=== PATIENT | male | born 1980 | race Two or more races ===

== ENCOUNTER → 2018-03-20 | Outpatient (CLI) | payer OTHER ==
[2018-03-21 02:39] LABS: Anion Gap 8.8 mmol/L (4.00-12.00); Calcium 9.5 mg/dL (8.7-10.3); Carbon Dioxide 27.2 mmol/L (21.6-31.8); Potassium 4.4 mmol/L (3.5-5.5)
[2018-03-21 04:11] LABS: Hemoglobin A1C 5.5 % (4.0-6.0)
== END | disposition home or self-care (01) ==
LOC: LABWHC1 14:56
PROVIDERS: ATTEND Nurse Practitioner Adult Health
DX: Z00.00 Encounter for general adult medical examination without abnormal findings (principal); E78.2 Mixed hyperlipidemia
CPT/HCPCS: 36415; 80048; 80061; 83036

== ENCOUNTER → 2018-04-01 | Outpatient (CLI) | payer OTHER ==
--- NOTE | 2018-04-02 08:42 | XR ---
Lumbosacral spine HISTORY: Low back pain radiating to right leg 5 views of the lumbosacral spine No comparisons Lumbar vertebral bodies show preserved height, alignment, and bone mineralization. No evident spondyl olysis. Suspect transitional vertebral body, sacralization of L5. Some loss of disc height present L4 -5. IMPRESSION: Possible underlying degenerative disc disease and additional findings above. Lumbar MRI m ay be of benefit.
== END ==
LOC: RADXRMAIN 17:58
PROVIDERS: ATTEND Nurse Practitioner Adult Health
DX: M54.41 Lumbago with sciatica, right side (principal)
CPT/HCPCS: 72110

== ENCOUNTER → 2018-04-02 | Outpatient (CLI) | payer OTHER ==
--- NOTE | 2018-04-02 21:49 | MR ---
EXAMINATION TYPE: MR lumbar spine wo con DATE OF EXAM: 04/02/2018 COMPARISON: Plain film 04/01/2018 HISTORY: LBP, radiates into rt buttock TECHNIQUE: Multiplanar, multisequence images of the lumbar spine were acquired. L1-L2: Normal disc appearance without desiccation. No herniation, protrusion or disc bulging. No ca nal stenosis is present. Foramina are patent bilaterally. L2-L3: Normal disc appearance without desiccation. No herniation, protrusion or disc bulging. No ca nal stenosis is present. Foramina are patent bilaterally. L3-L4: Normal disc appearance without desiccation. No herniation, protrusion or disc bulging. No ca nal stenosis is present. Foramina are patent bilaterally. L4-L5: There is a left lateral disc herniation with extension towards the neural foramen, there may b e mass effect on the proximal L5 nerve root, there is no significant central canal stenosis. Lateral extension of endplate disc complex also encroaches on the left neural foramen. L5-S1: Normal disc appearance without desiccation. No herniation, protrusion or disc bulging. No ca nal stenosis is present. Foramina are patent bilaterally. Lumbar segments are intact. No paraspinal masses are identified. Conus medullaris has a normal appe arance. Lumbar vertebral bodies show preserved height and alignment. There is loss of disc height and signal at L4-5, there is endplate discogenic marrow signal change present. IMPRESSION: Degenerative disc disease as described with lateral disc herniation L4-5, correlate for radiculopathy .
== END | disposition home or self-care (01) ==
LOC: RADMRIMAIN 16:39
PROVIDERS: ATTEND Internal Medicine
DX: M51.16 Intervertebral disc disorders with radiculopathy, lumbar region (principal); R93.7 Abnormal findings on diagnostic imaging of other parts of musculoskeletal system
CPT/HCPCS: 72148

== ENCOUNTER → 2020-07-27 | Outpatient (CLI) | payer OTHER ==
[2020-07-27 19:15] LABS: Hemoglobin A1C 9.4 % (4.0-6.0)
[2020-07-28 01:07] LABS: ALT 67 U/L (10-49); AST 76 U/L (14-35); African American GFR (CKD) 123.4 (60.0-200.0); Albumin/Globulin Ratio 2.32 (1.60-3.17); Alkaline Phosphatase 128 U/L (41-126); BUN/Creat Ratio 13.33 Ratio (12.00-20.00); Calcium 9.6 mg/dL (8.7-10.3); Carbon Dioxide 23.5 mmol/L (21.6-31.8); Chloride 97 mmol/L (96-109); Chol/HDL Ratio 26.76; Cholesterol 562 mg/dL (0-200); Globulin 1.9 g/dL (1.6-3.3); Glucose 287 mg/dL (70-110); Non-African American GFR(CKD) 106.5 (60.0-200.0); Potassium 4.8 mmol/L (3.5-5.5); Sodium 133 mmol/L (135-145); Total Bilirubin 0.8 mg/dL (0.2-1.2); Total Protein 6.3 g/dL (6.2-8.2); Triglycerides >1100.0 mg/dL (0.0-149.0)
[2020-07-28 05:08] LABS: Urine Creatinine 149.8 mg/dL
== END | disposition home or self-care (01) ==
LOC: LABWHC1 10:31
PROVIDERS: ATTEND Nurse Practitioner Adult Health
DX: Z00.00 Encounter for general adult medical examination without abnormal findings (principal); E11.65 Type 2 diabetes mellitus with hyperglycemia
CPT/HCPCS: 36415; 80053; 80061; 82043; 82570; 83036; 83721; 84443

== ENCOUNTER → 2020-09-28 | Outpatient (CLI) | payer OTHER ==
--- NOTE | 2020-09-28 18:48 | CT ---
EXAMINATION TYPE: CT abdomen pelvis wo con DATE OF EXAM: 09/28/2020 COMPARISON: None INDICATION: flank pain, hx of stones DLP: 1655.1 mGycm, Automated exposure control for dose reduction was used. CONTRAST: 0 mL of Isovue 300. Study performed without Oral Contrast TECHNIQUE: Axial images were obtained from above the diaphragm to the pubic rami in the axial plane a t 5 mm thick sections. Reconstructed images are reviewed on the computer in the coronal plane. FINDINGS: Limited CT sections are obtained the lung bases. The lung bases are clear. CT ABDOMEN: Liver: Normal Spleen: Normal Pancreas: Normal Adrenal glands: The adrenal glands are normal. Gallbladder: Surgically absent Kidneys: No masses are evident. No hydronephrosis is present. No cysts are present. There is a lar ge irregular nonobstructing renal stone in the superior pole right kidney measuring 1.9 cm. There is a nonobstructing mid to inferior pole left renal stone measuring 0.6 cm. There is an obstructing left ureteral pelvic stone measuring 1.5 cm. Some minimal inflammatory change is adjacent to the ureter. No hydroureter is evident distal to the calcification. Aorta: Vascular calcification is within the aorta. Inferior vena cava: Normal. CT PELVIS: Loops of bowel within the abdomen and pelvis are normal. The study is without oral contrast limit ing bowel evaluation. Appendix: Normal as visualized. Urinary bladder: Normal. No urinary bladder calcifications are evident Genitourinary structures: Prostate is slightly prominent. Osseous structures: No suspicious lytic or sclerotic lesions. IMPRESSIONS: 1. There is a partially obstructing 1.5 cm calcification at the left ureteropelvic junction. No sign ificant hydronephrosis is evident with mild left renal pelvis prominence. Some inflammatory change is adjacent at the level of the calcification. Free fluid is not identified. 2. Bilateral nonobstructing renal stones the larger is at superior pole right kidney.
== END | disposition home or self-care (01) ==
LOC: RADCTMAIN 17:21
PROVIDERS: ATTEND Urology
DX: N20.0 Calculus of kidney (principal); N20.1 Calculus of ureter; N13.5 Crossing vessel and stricture of ureter without hydronephrosis
CPT/HCPCS: 74176

== ENCOUNTER → 2020-10-18 | Outpatient (CLI) | payer OTHER ==
[2020-10-18 16:23] LABS: Basophils # (A) 0.1 k/uL (0-0.2); Basophils % (A) 1 %; Eosinophils # (A) 0.3 k/uL (0-0.7); Eosinophils % (A) 3 %; HCT 48.2 % (39.0-53.0); HGB 16.9 gm/dL (13.0-17.5); Lymphocytes # (A) 3.7 k/uL (1.0-4.8); Lymphocytes % (A) 37 %; MCH 28.3 pg (25.0-35.0); MCHC 35.1 g/dL (31.0-37.0); MCV 80.5 fL (80.0-100.0); Mean Platelet Volume 6.8; Monocytes # (A) 0.6 k/uL (0-1.0); Monocytes % (A) 6 %; Neutrophils # (A) 5.1 k/uL (1.3-7.7); Neutrophils % (A) 52 %; Platelet Count 261 k/uL (150-450); RBC 5.99 m/uL (4.30-5.90); RDW 13.3 % (11.5-15.5); WBC 9.9 k/uL (3.8-10.6)
[2020-10-18 16:37] LABS: Appearance,Urine Cloudy (Clear); Bilirubin,Urine Negative (Negative); Blood,Urine Large (Negative); Budding Yeast,Urine Moderate /hpf; Color,Urine Yellow; Glucose,Urine (UA) Trace (Negative); Ketones,Urine Trace (Negative); Leukocyte Esterase,Urine Moderate (Negative); Mucus,Urine Rare /hpf; Nitrite,Urine Negative (Negative); PH, Urine 5.5 (5.0-8.0); Protein,Urine 2+ (Negative); RBC,Urine >182 /hpf (0-5); Specific Gravity,Urine 1.025 (1.001-1.035); Urobilinogen,Urine <2.0 mg/dL (<2.0); WBC,Urine 48 /hpf (0-5)
[2020-10-18 16:41] LABS: African American GFR (CKD) >90 (>60 ml/min/1.73 sqM); Anion Gap 11 mmol/L; Blood Urea Nitrogen 10 mg/dL (9-20); Calcium 9.2 mg/dL (8.4-10.2); Carbon Dioxide 25 mmol/L (22-30); Chloride 105 mmol/L (98-107); Glucose 153 mg/dL (74-99); Non-African American GFR(CKD) >90 (>60 ml/min/1.73 sqM); Potassium 4.1 mmol/L (3.5-5.1); Sodium 141 mmol/L (137-145)
== END | disposition home or self-care (01) ==
LOC: LABPAT 16:05
PROVIDERS: ATTEND Urology
DX: Z01.812 Encounter for preprocedural laboratory examination (principal); N20.0 Calculus of kidney; E11.9 Type 2 diabetes mellitus without complications; R31.29 Other microscopic hematuria
CPT/HCPCS: 36415; 80048; 81001; 85025; 87086

== ENCOUNTER 2020-10-25 11:44 | Observation (INO) | payer OTHER ==
[2020-10-22 09:06] VITALS: BMI 36.9
--- NOTE | 2020-10-24 20:46 | P.GSHP ---
History of Present Illness H&P Date: 10/24/20 40 yo male with bilateral symptomati renal stones who comes for a left pcnl. the risks. complications and alternatives have been discussed. - Constitutional Constitutional: Denies chills, Denies fever - EENT Eyes: denies blurred vision, denies pain Ears, nose, mouth and throat: Denies headache, Denies sore throat - Cardiovascular Cardiovascular: Denies chest pain, Denies shortness of breath - Respiratory Respiratory: Denies cough, Denies 7 - Gastrointestinal Gastrointestinal: Denies abdominal pain, Denies diarrhea, Denies nausea, Denies vomiting - Genitourinary (Female) Genitourinary: Denies dysuria, Denies hematuria - Genitourinary (Male) Genitourinary: Denies dysuria, Denies hematuria - Musculoskeletal Musculoskeletal: Denies myalgias - Integumentary Integumentary: Denies pruritus, Denies rash - Neurological Neurological: Denies numbness, Denies weakness - Psychiatric Psychiatric: Denies anxiety, Denies depression - Endocrine Endocrine: Denies fatigue, Denies weight change Past Medical History Past Medical History: Diabetes Mellitus, Hyperlipidemia, Sleep Apnea/CPAP/BIPAP Additional Past Medical History / Comment(s): KIDNEY STONES, History of Any Multi-Drug Resistant Organisms: None Reported Past Surgical History: Cholecystectomy Additional Past Surgical History / Comment(s): KIDNEY STONES REMOVED of the right kidney 3 Past Anesthesia/Blood Transfusion Reactions: No Reported Reaction Smoking Status: Never smoker - Past Family History Mother Family Medical History: AFIB Father Family Medical History: Coronary Artery Disease (CAD), CVA/TIA Brother(s) Family Medical History: No Reported History Sister(s) Family Medical History: No Reported History Daughter(s) Family Medical History: No Reported History Son(s) Family Medical History: No Reported History Medications and Allergies Home Medications Medication Instructions Recorded Confirmed Type Atorvastatin [Lipitor] 20 mg PO DAILY 10/22/20 10/22/20 History metFORMIN HCL 1,000 mg PO DAILY 10/22/20 10/22/20 History Allergies Allergy/AdvReac Type Severity Reaction Status Date / Time No Known Allergies Allergy Verified 10/22/20 08:35 Surgical - Exam - General well developed, well nourished - Eyes PERRL - ENT no hearing loss - Neck trachea midline - Respiratory normal expansion, normal respiratory effort - Cardiovascular Rhythm: regular - Abdomen Abdomen: soft, non tender - Integumentary no rash, no growths - Neurologic normal coordination - Musculoskeletal normal gait, normal posture - Psychiatric oriented to time, oriented to person, oriented to place, speech is normal, memory intact Results - Imaging CT scan - abdomen: report reviewed, image reviewed CT scan - pelvis: report reviewed, image reviewed Assessment and Plan Assessment: Impression: Large[>2cm] left renal stone, DM Plan: Left PCNL
[~2020-10-25 11:44] MED LIST: DEXAMETHASONE SOD PHOSPHATE 4 MG/ML 1 ML VIAL IV ONE; HYDROmorphone 0.5 MG/0.5 ML SYRINGE IVP PRN; MIDAZOLAM 2 MG/2 ML VIAL IV PRN; ONDANSETRON 4 MG/2 ML VIAL IVP ONE; SCOPOLAMINE 1.5MG/72HR PATCH TRANSDERM ONE
[2020-10-25] MEDS ORDERED: LACTATED RINGERS 1,000 ML IV ONE ×4 (12:07→14:59)
[2020-10-25 12:14] LABS: Glucose,Whole Blood 184 mg/dL (75-99)
--- NOTE | 2020-10-25 12:31 | XR ---
EXAMINATION TYPE: XR KUB DATE OF EXAM: 10/25/2020 11:58 AM CLINICAL HISTORY: History of kidney stones. Stones in the left kidney TECHNIQUE: Single supine KUB image of the abdomen is obtained. COMPARISON: CT 09/28/2020. KUB 09/14/2020 FINDINGS: Scattered gas is seen in non-distended small bowel loops. Gas and fecal material is seen in non-distended colon. There is a 1.2 x 2.2 cm calcification at the L2-3 level, similar to prior exam. This may represent a ureteral calculus. At the left mid to lower pole there is an 8 mm calculus, als o stable. Calcification over the right upper pole measuring 2.1 cm. Degenerative changes of the hips are mild. IMPRESSION: 1. Bilateral renal calculi and left proximal ureteral calculus are relatively stable.
[2020-10-25] MEDS ORDERED: NEOSTIGMINE 1 MG/ML 10 ML VIAL ONE (13:31)
[2020-10-25] MEDS ORDERED: fentaNYL (PF) 50 MCG/ML 2 ML AMP ONE (13:31)
[2020-10-25] MEDS ORDERED: LIDOCAINE 1% INJ 10MG/ML (20 ML MDV) ONE (13:31)
[2020-10-25] MEDS ORDERED: ROCURONIUM 10 MG/ML (5 ML VIAL) IV ONE (13:31)
[2020-10-25] MEDS ORDERED: MIDAZOLAM 2 MG/2 ML VIAL ONE (13:31)
[2020-10-25] MEDS ORDERED: SUCCINYLCHOLINE CHLORIDE 100 MG/5 ML SYR IV ONE (13:31)
[2020-10-25] MEDS ORDERED: PROPOFOL 10 MG/ML 20 ML VIAL IV ONE (13:31)
[2020-10-25] MEDS ORDERED: GLYCOPYRROLATE 0.2 MG/ML 2 ML VIAL ONE (13:31)
[2020-10-25] MEDS ORDERED: IOPAMIDOL-370 50ML BTL IRRIGATION ONE ×2 (13:49→15:00)
[2020-10-25] MEDS ORDERED: MAG HYDROX/AL HYDROX/SIMETH 30 ML CUP PO PRN (15:29)
[2020-10-25] MEDS ORDERED: ACETAMINOPHEN TAB 325 MG TAB PO PRN (15:29)
[2020-10-25] MEDS ORDERED: ONDANSETRON 4 MG/2 ML VIAL IVP PRN (15:29)
[2020-10-25] MEDS ORDERED: NALOXONE 0.4 MG/ML 1 ML VIAL IV PRN (15:30)
[2020-10-25] MEDS ORDERED: KETOROLAC 15 MG/ML 1 ML VIAL IVP PRN (15:30)
[2020-10-25] MEDS ORDERED: HYDROmorphone PCA 10 MG/50 ML BAG IV PRN (15:30)
--- NOTE | 2020-10-25 15:35 | P.OP ---
Date of Procedure: 10/25/20 Preoperative Diagnosis: Left renal calculus (large, greater than 2 cm) Postoperative Diagnosis: Same Procedure(s) Performed: Cystoscopy, placement of ureteral catheter left, percutaneous nephrostomy (Dr. deleon) or cutaneous nephrostolithotomy with ultrasound, placement of 12 J nephrostomy Anesthesia: MARY Surgeon: Fred Boggs Estimated Blood Loss (ml): 100 Pathology: other Condition: stable Disposition: PACU (Stone) Indications for Procedure: The patient is 40. He has a 25 x 12 mm left renal pelvic stone and a 5 mm lower pole calyceal stone. Treatment options have been discussed he comes for percutaneous nephrostolithotomy alternatives have been discussed Description of Procedure: Patient brought the operating suite. On the [facility] is given a general anesthesia. He's placed in a frog position with sterile prep and drape. In troduce a cystoscope into the urethra. Urethra is normal with prostate is not obstructing. The left renal orifice is identified and intubated with a 5-Syrian occluding balloon catheter. It is secured to a 16-Syrian Torrez The patient is placed in prone position but unfortunately appears as if the ureteral catheter slipped out of the ureter. He is then placed back on the transport [place]. Again his placed in lithotomy position with a sterile prep and drape. A reintroduced the cystoscope. An 035 wires passed up the ureter. Over the wires passed the 5-Syrian occluding balloon catheter up into the kidney. This is secured to a Torrez catheter The patient placed in prone position with care to airways and extremities. Dr. Deleon performed percutaneous access to the left middle pole posterior calyx. We dilate the tract to 30-Syrian. Introduced the sheath into the collecting system and identify the large stone which is broken up in the smaller fragments in either suction out with ultrasound or grasp with the grasping forceps I then introduced the flexible scope and individually inspect each calyx. Identify the lower pole calyceal stone which is basketed with a stone basket He no remaining stone endoscopically or fluoroscopically. A 12 J nephrostomy tubes placed over the working wire and coils in the renal pelvis. It is secured the skin. The patient awake and returned recovery room in good condition is approximately 100 mL. He'll be placed in the hospital overnight.
[2020-10-25 16:04] LABS: Glucose,Whole Blood 199 mg/dL (75-99)
[2020-10-25] MEDS ORDERED: diphenhydrAMINE 50 MG/ML 1 ML VIAL IVP ONE (16:36)
[2020-10-25] MEDS: SODIUM CHLORIDE 0.45% 1,000 ML IV SCH ×2 (16:44→17:07)
[2020-10-25] MEDS: LACTATED RINGERS 1,000 ML IV SCH (17:44)
[2020-10-25] MEDS ORDERED: MELATONIN 5 MG TABLET PO SCH (21:00)
[2020-10-25 23:03] VITALS: RESP 20
[2020-10-26] MEDS: SODIUM CHLORIDE 0.45% 1,000 ML IV SCH (04:11)
[2020-10-26 05:51] VITALS: BP 111/65; PULSE 67; TEMP 97.2
[2020-10-26] MEDS ORDERED: HYDROcodone/APAP 5-325MG 1 EACH TAB PO PRN ×2 (08:40)
[2020-10-26] MEDS ORDERED: ATORVASTATIN 20 MG TAB PO SCH (09:00)
--- NOTE | 2020-10-26 09:02 | FL ---
EXAMINATION TYPE: FL Perc Nephrostomy New Access DATE OF EXAM: 10/25/2020 COMPARISON: NONE HISTORY: Left renal stone Procedure had been discussed with the patient by Dr. Boggs, risks, benefits, alternatives, were dis cussed and any questions were answered. Informed consent was obtained. The patient was in a semipro ne position prepped and draped on the OR table in the usual sterile fashion. Utilizing a 15 cm lengt h Chiba needle a single pass was made into a lower pole posterior calyx under fluoroscopic guidance. An 0.018 guidewire is passed through the needle and there was placement of a 6-Faroese catheter sheat h system. There was conversion to a 0.035 system was performed with passage of a guidewire into the ureter utilizing a directional catheter. A second safety wire was placed. Remaining portion of pro cedure performed by . Approximately 9 minutes and 16 seconds of fluoroscopy was provided. IMPRESSION: 1. Successful intraoperative left nephrostomy prior to nephrolithotomy.
[2020-10-26] MEDS: LACTATED RINGERS 1,000 ML IV SCH (09:27)
--- NOTE | 2020-10-26 10:39 | P.DS ---
Providers Date of admission: 10/25/20 23:39 Expected date of discharge: 10/26/20 Attending physician: Fred Boggs Primary care physician: Vincenzo Dupree MD Hospital Course: On the day of admission, the patient underwent an uncomplicated left percutaneous nephrolithotomy. The perioperative course was unremarkable. Patient remained afebrile with stable vital signs. On the first postoperative day, his pain was well-controlled. The nephrostomy tube is draining blood- tinged urine. The Torrez catheter was draining urine which was essentially clear in appearance. Procedures: Left percutaneous nephrolithotomy on 10/25/2020 Patient Condition at Discharge: Good Plan - Discharge Summary Discharge Rx Participant: No New Discharge Prescriptions: New HYDROcodone/APAP 5-325MG [Adel 5-325] 1 - 2 tab PO Q4HR PRN #10 tab PRN Reason: Pain No Action metFORMIN HCL 1,000 mg PO DAILY Atorvastatin [Lipitor] 20 mg PO DAILY Discharge Medication List Atorvastatin [Lipitor] 20 mg PO DAILY 10/22/20 [History] metFORMIN HCL 1,000 mg PO DAILY 10/22/20 [History] HYDROcodone/APAP 5-325MG [Adel 5-325] 1 - 2 tab PO Q4HR PRN #10 tab 10/26/20 [Rx] Follow up Appointment(s)/Referral(s): Fred Boggs MD [STAFF PHYSICIAN] - 1 Week Activity/Diet/Wound Care/Special Instructions: Discharge home with nephrostomy tube. Diet as tolerated. Drink plenty of fluids. No strenuous activity. Okay to shower. Discharge Disposition: HOME SELF-CARE
[2020-10-28] MEDS ORDERED: metFORMIN 500 MG TAB PO SCH (09:00)
== END 2020-10-26 12:39 | disposition home or self-care (01) ==
LOC: OR 11:44 → 5NMEDONC 15:23 → OR 23:00 → 5NMEDONC 23:39
PROVIDERS: ADMIT Urology; ATTEND Urology
DX: N20.0 Calculus of kidney (principal); E11.9 Type 2 diabetes mellitus without complications; E78.5 Hyperlipidemia, unspecified; G47.30 Sleep apnea, unspecified; Z20.822 Contact with and (suspected) exposure to COVID-19; Z87.442 Personal history of urinary calculi; Z90.49 Acquired absence of other specified parts of digestive tract; Z82.49 Family history of ischemic heart disease and other diseases of the circulatory system; Z82.3 Family history of stroke; Z79.899 Other long term (current) drug therapy; Z79.84 Long term (current) use of oral hypoglycemic drugs
CPT/HCPCS: 50081; 86900; 86901; 86850; 82365; 87635; 50432; 74018; G0378 ×2; C1769 ×2; C1758; C1894; C1729; J2250; J1200; J1100; J2710; J0690; J2405; J2001; J3010; J1885; J0330; J2704; J1170 ×2; Q9967

== ENCOUNTER → 2022-07-18 | Outpatient (CLI) | payer OTHER ==
--- NOTE | 2022-07-18 17:11 | XR ---
EXAMINATION TYPE: XR KUB DATE OF EXAM: 07/18/2022 5:06 PM INDICATION: Patient age:Male; 42 years old; Reason for study: N20. KUB XR; COMPARISON: 10/26/2019 TECHNIQUE: One radiographic view of the abdomen was obtained. FINDINGS: The bowel gas pattern is nonspecific without dilated loops of small or large bowel. There i s no evidence for organomegaly or pneumoperitoneum. The osseous structures are intact. Pelvic phleb oliths are present. Right renal calculus measuring 25 x 12 mm. Fecal material and gas are demonstrat ed throughout the colon and rectum. Right upper quadrant cholecystectomy clips. IMPRESSION: 1. Right renal calculus measuring 25 x 12 mm. 2. Nonspecific bowel gas pattern without radiographic evidence for acute process.
== END | disposition home or self-care (01) ==
LOC: RADXRMAIN 16:22
PROVIDERS: ATTEND Urology
DX: N20.0 Calculus of kidney (principal)
CPT/HCPCS: 74018

== ENCOUNTER → 2022-08-21 | Outpatient (CLI) | payer OTHER ==
--- NOTE | 2022-08-21 23:21 | CT ---
EXAMINATION TYPE: CT abdomen pelvis wo con DATE OF EXAM: 08/21/2022 HISTORY: f/u kidney stones and left groin pain. CT DLP: 1654.20 mGycm. Automated Exposure Control for Dose Reduction was Utilized. TECHNIQUE: CT scan of the abdomen and pelvis is performed without oral or IV contrast. COMPARISON: CT abdomen and pelvis September 28, 2020 FINDINGS: Within the limitations of a non-contrast study, the following observations are made. LUNG BASES: Some coronary artery calcification is redemonstrated. LIVER/GB: Cholecystectomy clips are redemonstrated. Liver remains diffusely low dense consistent with diffuse fatty infiltration PANCREAS: No significant abnormality is seen. SPLEEN: No significant abnormality is seen. ADRENALS: No significant abnormality is seen. KIDNEYS: Multiple adjacent calculi in the upper pole right kidney or single staghorn type calculus re demonstrated measuring in confluence 2.3 cm long axis coronal image 79 similar prior. No left-sided n ephrolithiasis or hydronephrosis on current study. No right-sided hydronephrosis. No intraluminal pura culi in the poorly distended bladder. Right-sided pelvic phleboliths redemonstrated. BOWEL: Normal-appearing appendix from base of cecum. Somewhat redundant sigmoid colon redemonstrated. No suspicious bowel dilatation. GENITAL ORGANS: No gross abnormality seen. LYMPH NODES: No greater than 1cm abdominal or pelvic lymph nodes are appreciated. OSSEOUS STRUCTURES: Presumed accessory bilateral L1 ribs redemonstrated with transitional vertebra faustino mbosacral junction. Stable moderate disc space narrowing L5-L6 level with vacuum disc phenomenon now present. OTHER: No significant additional abnormality is seen. IMPRESSION: No left-sided nephrolithiasis or hydronephrosis. Slightly more prominent multiple adjacen t renal calculi or more likely single staghorn 2.3 cm calculus upper pole right kidney. No right-side d hydronephrosis currently. No new nephrolithiasis seen.
== END | disposition home or self-care (01) ==
LOC: RADCTMAIN 19:05
PROVIDERS: ATTEND Urology
DX: N20.2 Calculus of kidney with calculus of ureter (principal)
CPT/HCPCS: 74176

== ENCOUNTER → 2022-10-04 | Outpatient (CLI) | payer OTHER ==
[2022-10-04 16:14] LABS: ALT 50 U/L (10-49); AST 96 U/L (14-35); Albumin 4.2 d/dL (3.8-4.9); Albumin/Globulin Ratio 1.75 Ratio (1.60-3.17); Alkaline Phosphatase 121 U/L (41-126); Blood Urea Nitrogen 9.2 mg/dL (9.0-27.0); Calcium 9.3 mg/dL (8.7-10.3); Carbon Dioxide 26.4 mmol/L (21.6-31.8); Chloride 103 mmol/L (96-109); Globulin 2.4 d/dL (1.6-3.3); Glucose 233 mg/dL (70-110); Potassium 4.8 mmol/L (3.5-5.5); Sodium 140 mmol/L (135-145); Total Bilirubin 0.8 mg/dL (0.3-1.2); Total Protein 6.6 d/dL (6.2-8.2)
[2022-10-04 19:38] LABS: Basophils # (A) 0.05 X 10*3/uL (0.00-0.10); Basophils % (A) 0.6 %; Eosinophils # (A) 0.22 X 10*3/uL (0.04-0.35); Eosinophils % (A) 2.8 %; HGB 15.3 d/dL (12.0-15.0); Lymphocytes # (A) 2.93 X 10*3/uL (0.90-5.00); Lymphocytes % (A) 37.3 %; MCHC 32.6 d/dL (32.0-37.0); Mean Platelet Volume 10.6 FL (9.5-12.2); Monocytes # (A) 0.65 X 10*3/uL (0.20-1.00); Monocytes % (A) 8.3 %; NRBC Per 100 WBC 0 X 10*3/uL (0.00-0.01); Neutrophils # (A) 3.96 X 10*3/uL (1.80-7.70); Neutrophils % (A) 50.4 %; Platelet Count 257 X 10*3/uL (140-440); RBC 5.66 X 10*6/uL (4.40-5.60); RDW 13.7 % (11.5-14.5); WBC 7.86 X 10*3/uL (4.50-10.00)
[2022-10-04 22:22] LABS: Appearance,Urine Turbid (Clear); Bilirubin,Urine Negative (Negative); Blood,Urine Small (Negative); Color,Urine Yellow (Yellow); Ketones,Urine Trace (Negative); Nitrite,Urine Negative (Negative); PH, Urine 5.5; Specific Gravity,Urine 1.027 (1.001-1.030); Urobilinogen,Urine 0.2
== END | disposition home or self-care (01) ==
LOC: LABPAT 08:33
PROVIDERS: ATTEND Urology
DX: Z01.812 Encounter for preprocedural laboratory examination (principal); N20.0 Calculus of kidney; R31.29 Other microscopic hematuria
CPT/HCPCS: 80053; 85025; 87086

== ENCOUNTER 2022-10-11 09:48 | Day surgery (SDC) | payer OTHER ==
[2022-10-10 08:37] VITALS: BMI 36.3
--- NOTE | 2022-10-10 18:18 | P.GSHP ---
History of Present Illness H&P Date: 10/10/22 42 yo male with a histroy of stones. He presents with right flank pain and a 2.3cm right upper pole stone. He was given different treatment options and now comes for a right pcnl. the risks and complicatins including failure to remove the stone, access the kidney, damage to adjacent organs, infection, bleeding pain and sepsi. He comes for this procedure. - Constitutional Constitutional: Denies chills, Denies fever - EENT Eyes: denies blurred vision, denies pain Ears, nose, mouth and throat: Denies headache, Denies sore throat - Cardiovascular Cardiovascular: Denies chest pain, Denies shortness of breath - Respiratory Respiratory: Denies cough, Denies 7 - Gastrointestinal Gastrointestinal: Denies abdominal pain, Denies diarrhea, Denies nausea, Denies vomiting - Genitourinary (Female) Genitourinary: Denies dysuria, Denies hematuria - Genitourinary (Male) Genitourinary: Denies dysuria, Denies hematuria - Musculoskeletal Musculoskeletal: Denies myalgias - Integumentary Integumentary: Denies pruritus, Denies rash - Neurological Neurological: Denies numbness, Denies weakness - Psychiatric Psychiatric: Denies anxiety, Denies depression - Endocrine Endocrine: Denies fatigue, Denies weight change Past Medical History Past Medical History: Hyperlipidemia, Sleep Apnea/CPAP/BIPAP Additional Past Medical History / Comment(s): KIDNEY STONES. No device for sleep apnea. History of Any Multi-Drug Resistant Organisms: None Reported Past Surgical History: Cholecystectomy Additional Past Surgical History / Comment(s): Surgery for right kidney stones X3. Past Anesthesia/Blood Transfusion Reactions: No Reported Reaction Past Psychological History: No Psychological Hx Reported Smoking Status: Never smoker Past Alcohol Use History: Occasional Past Drug Use History: None Reported - Past Family History Mother Family Medical History: AFIB Father Family Medical History: Coronary Artery Disease (CAD), CVA/TIA Brother(s) Family Medical History: No Reported History Sister(s) Family Medical History: No Reported History Daughter(s) Family Medical History: No Reported History Son(s) Family Medical History: No Reported History Medications and Allergies Home Medications Medication Instructions Recorded Confirmed Type No Known Home Medications 10/10/22 10/10/22 History Allergies Allergy/AdvReac Type Severity Reaction Status Date / Time No Known Allergies Allergy Verified 10/10/22 08:23 Surgical - Exam - General well developed, well nourished, no distress - Eyes normal ocular movement, no icteric - ENT no hearing loss, no congestion - Neck no masses, trachea midline - Respiratory normal respiratory effort, clear to auscultation - Abdomen Abdomen: soft, non tender, no guarding, no rigid, no rebound - Integumentary no rash, no abnormal pigmentation - Neurologic no disoriented, no combative - Psychiatric oriented to time, oriented to person, oriented to place, speech is normal, memory intact Results - Imaging CT scan - abdomen: report reviewed, image reviewed CT scan - pelvis: report reviewed, image reviewed Assessment and Plan Assessment: impression: right renal stone[large, 2.3cm] Plan: right PCNL
[~2022-10-11 09:48] MED LIST changes: +AMPICILLIN 1,000 MG in SODIUM CHLORIDE 0.9% 50 ML IVPB PRN; +GENTAMICIN IVPB PRN; +LIDOCAINE 1% (10MG/ML) FOR IV START INTRADERMA PRN; -SCOPOLAMINE 1.5MG/72HR PATCH TRANSDERM ONE; +SODIUM CHLORIDE 0.9% IVPB PRN
[2022-10-11] MEDS ORDERED: LACTATED RINGERS 1,000 ML IV ONE ×2 (10:20→12:23)
[2022-10-11 10:37] LABS: Glucose,Whole Blood 203 mg/dL (70-110)
[2022-10-11] MEDS ORDERED: fentaNYL (PF) 50 MCG/ML 2 ML AMP ONE (11:51)
[2022-10-11] MEDS ORDERED: MIDAZOLAM 2 MG/2 ML VIAL ONE (11:51)
[2022-10-11] MEDS ORDERED: PROPOFOL 10 MG/ML 20 ML VIAL IV ONE (11:51)
[2022-10-11] MEDS ORDERED: HYDROmorphone (PF) 1 MG/ML ONE (11:51)
[2022-10-11] MEDS ORDERED: SUCCINYLCHOLINE CHLORIDE 200 MG/10 ML VIAL IV ONE (11:51)
[2022-10-11] MEDS ORDERED: LIDOCAINE 2% INJ 20 MG/ML (2 ML VIAL) ONE (11:51)
[2022-10-11] MEDS ORDERED: ROCURONIUM 10 MG/ML (5 ML VIAL) IV ONE (11:51)
[2022-10-11] MEDS ORDERED: IOPAMIDOL-370 100ML BTL MISCELLANE ONE (12:25)
[2022-10-11] MEDS ORDERED: KETOROLAC 15 MG/ML 1 ML VIAL IVP PRN (13:41)
[2022-10-11] MEDS ORDERED: NALOXONE 0.4 MG/ML 1 ML VIAL IV PRN (13:41)
[2022-10-11] MEDS ORDERED: ONDANSETRON 4 MG/2 ML VIAL IVP PRN (13:41)
[2022-10-11] MEDS ORDERED: MAG HYDROX/AL HYDROX/SIMETH 30 ML CUP PO PRN (13:42)
[2022-10-11] MEDS ORDERED: ACETAMINOPHEN TAB 325 MG TAB PO PRN (13:42)
--- NOTE | 2022-10-11 13:48 | P.OP ---
Date of Procedure: 10/11/22 Preoperative Diagnosis: Right renal stone, large Postoperative Diagnosis: Same Procedure(s) Performed: Cystoscopy, placement of occluding balloon catheter right, percutaneous nephrostomy (Dr. deleon), percutaneous nephrostolithotomy with ultrasound, placement of 20-Hungarian reentry nephrostomy tube Anesthesia: MARY Surgeon: Fred Boggs Estimated Blood Loss (ml): 300 Pathology: other (Stone) Condition: stable Disposition: PACU Indications for Procedure: Patient is 42. He has a history of stones. He has a 2-1/2 cm right upper pole calyceal stone that is causing pain. He comes for percutaneous nephrostolithotomy I have been discussed risks and complications including pain bleeding injure the kidney injury to adjacent organs failure to remove all the stone Description of Procedure: Patient is brought to the operating suite. He is given a general anesthetic on the transport gurney. He's placed in a frog position with a sterile prep and drape. Cystoscopy Foroblique lens and 22-Hungarian sheath identifies a normal urethra. The prostate is obstructing the right ureteral orifice is identified and intubated with a 5-Hungarian occluding balloon catheter passed up to the renal pelvis A Torrez catheter, 16-Hungarian was introduced the bladder and secured to the ureteral catheter The patient's placed in a prone position with care to airways and extremities. Dr. Deleon enters the procedure and performed percutaneous access to the right upper pole calyx. We first attempted to access directly and the stone but we are unable to do so. We then access the calyx below that is posterior. I then dilate the tract to 30-Hungarian. Introduced the rigid scope into the collecting system. I see the upper pole calyx. Through the narrowed infundibulum I passed the ultrasonic nephroscope and break up the stone into tinier pieces in either suction it out or grasp it out. I then look into the collecting system and see no other remaining stones. At the end of the procedure a 20-Hungarian reentry nephrostomy tube was placed draining any small fragments remaining. Patient's awake and returned recovery in good condition. Blood loss is approximately 300 mL. He tolerated procedure well be placed in the hospital postoperatively.
--- NOTE | 2022-10-11 14:21 | FL ---
EXAMINATION TYPE: FL Perc Nephrostomy New Access DATE OF EXAM: 10/11/2022 COMPARISON: NONE HISTORY: Right renal calculus Procedure had been discussed with the patient by Dr. Boggs, risks, benefits, alternatives, were dis cussed and any questions were answered. Informed consent was obtained. The patient was in a semipro ne position prepped and draped on the OR table in the usual sterile fashion. Utilizing a 15 cm lengt h Chiba needle a single pass was made into a mid pole posterior calyx under fluoroscopic guidance. A n 0.018 guidewire is passed through the needle and there was placement of a 6-Tajik catheter sheath system. There was conversion to a 0.035 system was performed with passage of a guidewire into the u reter utilizing a directional catheter. A second safety wire was placed. Remaining portion of proce dure performed by . Approximately 5 minutes and 27 seconds of fluoroscopy was provided. IMPRESSION: 1. Successful intraoperative right nephrostomy prior to nephrolithotomy.
[2022-10-11 14:59] LABS: Glucose,Whole Blood 232 mg/dL (70-110)
--- NOTE | 2022-10-11 15:31 | XR ---
EXAMINATION TYPE: XR KUB DATE OF EXAM: 10/11/2022 COMPARISON: 07/18/2022 INDICATION: Large right renal stone TECHNIQUE: Single view abdomen supine view FINDINGS: There is a normal bowel gas pattern. Psoas margins are normal. No organomegaly is present. There is an irregular 2.5 x 1.7 cm calcification over the into superior pole kidney. This was present previously IMPRESSION: 1. Right renal stone.
[2022-10-11] MEDS: LACTATED RINGERS 1,000 ML IV SCH (15:48)
[2022-10-11] MEDS: HYDROmorphone PCA 10 MG/50 ML BAG IV PRN (16:15)
[2022-10-11] MEDS: DEXTROSE 5%-0.45% NACL 1,000 ML IV SCH ×2 (16:27→19:55)
[2022-10-11] MEDS ORDERED: DEXTROSE 50% SYRINGE 50 ML IVP PRN ×2 (20:49)
[2022-10-11 21:10] LABS: Glucose,Whole Blood 269 mg/dL (70-110)
[2022-10-11] MEDS: diphenhydrAMINE 25 MG CAP PO PRN (21:51)
[2022-10-11] MEDS: INSULIN ASPART (NovoLOG) 100 UNIT/ML VIAL SQ SCH (21:51)
[2022-10-12] MEDS: DEXTROSE 5%-0.45% NACL 1,000 ML IV SCH ×2 (00:17→08:47)
[2022-10-12] MEDS: LACTATED RINGERS 1,000 ML IV SCH (00:56)
[2022-10-12] MEDS: HYDROmorphone PCA 10 MG/50 ML BAG IV PRN (04:00)
[2022-10-12 06:13] LABS: Glucose,Whole Blood 222 mg/dL (70-110)
[2022-10-12] MEDS: INSULIN ASPART (NovoLOG) 100 UNIT/ML VIAL SQ SCH ×2 (06:28→12:19)
[2022-10-12] MEDS: diphenhydrAMINE 25 MG CAP PO PRN (06:31)
[2022-10-12 08:25] VITALS: RESP 18
[2022-10-12] MEDS ORDERED: PANTOPRAZOLE 40 MG/10 ML VIAL IVP SCH (09:00)
[2022-10-12] MEDS ORDERED: INSULIN DETEMIR (LEVEMIR) 100 UNIT/ML SYR SQ SCH (09:30)
[2022-10-12 09:36] LABS: Basophils % (A) 0 %; Eosinophils # (A) 0.1 k/uL (0-0.7); Eosinophils % (A) 1 %; HCT 38.6 % (39.0-53.0); HGB 13.1 gm/dL (13.0-17.5); Lymphocytes # (A) 2.6 k/uL (1.0-4.8); Lymphocytes % (A) 23 %; MCH 28.4 pg (25.0-35.0); MCV 83.4 fL (80.0-100.0); Monocytes # (A) 0.8 k/uL (0-1.0); Monocytes % (A) 7 %; Neutrophils # (A) 7.8 k/uL (1.3-7.7); Neutrophils % (A) 68 %; Platelet Count 246 k/uL (150-450); RBC 4.63 m/uL (4.30-5.90); RDW 13.7 % (11.5-15.5); WBC 11.5 k/uL (3.8-10.6)
[2022-10-12 09:54] LABS: African American GFR (CKD) >90 (>60 ml/min/1.73 sqM); Anion Gap 12 mmol/L; Blood Urea Nitrogen 11 mg/dL (9-20); Calcium 8.2 mg/dL (8.4-10.2); Carbon Dioxide 23 mmol/L (22-30); Chloride 99 mmol/L (98-107); Glucose 248 mg/dL (74-99); Non-African American GFR(CKD) >90 (>60 ml/min/1.73 sqM); Potassium 3.8 mmol/L (3.5-5.1); Sodium 134 mmol/L (137-145)
[2022-10-12 11:41] LABS: Glucose,Whole Blood 196 mg/dL (70-110)
--- NOTE | 2022-10-12 13:21 | P.CONS ---
History of Present Illness - Reason for Consult New-onset diabetes mellitus - History of Present Illness Patient is admitted for right renal calculi with a percutaneous extraction of ostomy placement. Medicine was consulted for management of diabetes mellitus which is believed to be new-onset although patient had the abdomen as well as in the past used to use metformin and did improve with diet after which metformin was subsequently discontinue outpatient hemoglobin NSAID this point of time is 9.8. Patient denied any symptoms at this time. REVIEW OF SYSTEMS: CONSTITUTIONAL: No fever, no malaise, no fatigue. HEENT: No recent visual problems or hearing problems. Denied any sore throat. CARDIOVASCULAR: No chest pain, orthopnea, PND, no palpitations, no syncope. PULMONARY: No shortness of breath, no cough, no hemoptysis. GASTROINTESTINAL: No diarrhea, no nausea, no vomiting, no abdominal pain. NEUROLOGICAL: No headaches, no weakness, no numbness. HEMATOLOGICAL: Denies any bleeding or petechiae. GENITOURINARY: Denies any burning micturition, frequency, or urgency. MUSCULOSKELETAL/RHEUMATOLOGICAL: Denies any joint pain, swelling, or any muscle pain. ENDOCRINE: Denies any polyuria or polydipsia. The rest of the 14-point review of systems is negative. PHYSICAL EXAMINATION: GENERAL: The patient is alert and oriented x3, not in any acute distress. Well developed, well nourished. HEENT: Pupils are round and equally reacting to light. EOMI. No scleral icterus. No conjunctival pallor. Normocephalic, atraumatic. No pharyngeal erythema. No thyromegaly. CARDIOVASCULAR: S1 and S2 present. No murmurs, rubs, or gallops. PULMONARY: Chest is clear to auscultation, no wheezing or crackles. ABDOMEN: Soft, nontender, nondistended, normoactive bowel sounds. No palpable organomegaly. MUSCULOSKELETAL: No joint swelling or deformity. EXTREMITIES: No cyanosis, clubbing, or pedal edema. NEUROLOGICAL: Gross neurological examination did not reveal any focal deficits. SKIN: No rashes. Assessment and plan -Type 2 diabetes mellitus: Patient was counseled regarding diet and exercise which will improve his diabetes mellitus significantly. Patient will be resumed on 500 mg twice a day of metformin which most probably need to be increased to thousand twice a day along with the second medication. Patient will follow with PCP for all these. -Leukocytosis secondary to nephrolithiasis patient presently has a nephrostomy in place -Hyperlipidemia -Obesity sleep apnea DVT prophylaxis: Early ambulation Past Medical History Past Medical History: Hyperlipidemia, Sleep Apnea/CPAP/BIPAP Additional Past Medical History / Comment(s): KIDNEY STONES. No device for sleep apnea. History of Any Multi-Drug Resistant Organisms: None Reported Past Surgical History: Cholecystectomy Additional Past Surgical History / Comment(s): Surgery for right kidney stones X3. Past Anesthesia/Blood Transfusion Reactions: No Reported Reaction Smoking Status: Never smoker - Past Family History Mother Family Medical History: AFIB Father Family Medical History: Coronary Artery Disease (CAD), CVA/TIA Brother(s) Family Medical History: No Reported History Sister(s) Family Medical History: No Reported History Daughter(s) Family Medical History: No Reported History Son(s) Family Medical History: No Reported History Medications and Allergies Home Medications Medication Instructions Recorded Confirmed Type metFORMIN HCL [Glucophage] 500 mg PO BID #60 tab 10/12/22 Rx Allergies Allergy/AdvReac Type Severity Reaction Status Date / Time No Known Allergies Allergy Verified 10/11/22 10:26 Physical Exam Vitals: Vital Signs Temp Pulse Resp BP Pulse Ox 10/12/22 07:25 98.7 F 90 18 111/69 95 10/12/22 02:00 97.8 F 89 17 118/75 96 10/11/22 20:00 98.2 F 90 17 125/82 94 L 10/11/22 15:50 97.7 F 101 H 20 128/87 95 10/11/22 15:22 93 16 119/72 100 10/11/22 15:07 95 16 138/84 100 10/11/22 14:52 92 16 140/74 100 10/11/22 14:37 95 16 127/78 100 10/11/22 14:22 103 H 16 124/75 97 10/11/22 14:07 103 H 16 115/70 94 L 10/11/22 13:52 100 16 113/64 94 L Intake and Output 10/11/22 10/12/22 10/12/22 22:59 06:59 14:59 Output Total 1110 850 300 Balance -1110 -850 -300 Output: Drainage 350 300 300 Right 350 300 300 Urine 760 550 Other: Voiding Method Indwelling Catheter Indwelling Catheter Weight 125.3 kg Results CBC & Chem 7: 10/12/22 09:15 10/12/22 09:15 Labs: Abnormal Lab Results - Last 24 Hours (Table) 10/11/22 10/11/22 10/12/22 Range/Units 14:57 21:08 05:08 WBC (3.8-10.6) k/uL Hct (39.0-53.0) % Neutrophils # (1.3-7.7) k/uL Sodium (137-145) mmol/L Glucose (74-99) mg/dL POC Glucose (mg/dL) 232 H 269 H (70-110) mg/dL Hemoglobin A1c 9.8 H (<=6.0) % Calcium (8.4-10.2) mg/dL 10/12/22 10/12/22 10/12/22 Range/Units 06:12 09:15 09:15 WBC 11.5 H (3.8-10.6) k/uL Hct 38.6 L (39.0-53.0) % Neutrophils # 7.8 H (1.3-7.7) k/uL Sodium 134 L (137-145) mmol/L Glucose 248 H (74-99) mg/dL POC Glucose (mg/dL) 222 H (70-110) mg/dL Hemoglobin A1c (<=6.0) % Calcium 8.2 L (8.4-10.2) mg/dL 10/12/22 Range/Units 11:39 WBC (3.8-10.6) k/uL Hct (39.0-53.0) % Neutrophils # (1.3-7.7) k/uL Sodium (137-145) mmol/L Glucose (74-99) mg/dL POC Glucose (mg/dL) 196 H (70-110) mg/dL Hemoglobin A1c (<=6.0) % Calcium (8.4-10.2) mg/dL
--- NOTE | 2022-10-12 14:00 | P.DS ---
Providers Expected date of discharge: 10/12/22 Attending physician: Fred Boggs Consults: 10/11/22 15:32 Consult Physician Routine Consulting Provider: Jose Jefferson Consult Reason/Comments: NEW ONSET D.M. Do you want consulting provider notified?: Yes Primary care physician: CAROLINA Mehta Hospital Course: On the day of admission, the patient underwent an uncomplicated right PCNL. The first postoperative day, his pain was controlled with Dilaudid. He was tolerating diet. The nephrostomy tube was draining blood-tinged urine. There was mild drainage around the nephrostomy tube. Torrez catheter was draining clear yellow urine. The abdomen was soft, non-tender, non-distended. Procedures: Right percutaneous nephrolithotomy (PCNL) on 10/11/2042 Patient Condition at Discharge: Good Plan - Discharge Summary Discharge Rx Participant: Yes New Discharge Prescriptions: New metFORMIN HCL [Glucophage] 500 mg PO BID #60 tab HYDROcodone/APAP 5-325MG [Colstrip 5-325] 1 - 2 tab PO Q6HR PRN #12 tab PRN Reason: Pain Discharge Medication List HYDROcodone/APAP 5-325MG [Colstrip 5-325] 1 - 2 tab PO Q6HR PRN #12 tab 10/12/22 [Rx] metFORMIN HCL [Glucophage] 500 mg PO BID #60 tab 10/12/22 [Rx] Follow up Appointment(s)/Referral(s): Fred Boggs MD [STAFF PHYSICIAN] - 10/17/22 Activity/Diet/Wound Care/Special Instructions: Discharge home with nephrostomy tube. Reinforce dressings as needed. Drink plenty of fluids. Diet as tolerated. Discharge Disposition: HOME SELF-CARE
[2022-10-12 15:04] VITALS: BP 113/68; PULSE 84; TEMP 98.5
[2022-10-12] MEDS ORDERED: metFORMIN 500 MG TAB PO SCH (17:30)
== END 2022-10-12 16:46 | disposition home or self-care (01) ==
LOC: OR 09:48 → 4SSUR 13:42 → OR 10-12 16:46
PROVIDERS: ATTEND Urology
DX: N20.0 Calculus of kidney (principal); E78.5 Hyperlipidemia, unspecified; G47.33 Obstructive sleep apnea (adult) (pediatric); F90.9 Attention-deficit hyperactivity disorder, unspecified type; Z98.890 Other specified postprocedural states; F10.90 Alcohol use, unspecified, uncomplicated; Z87.442 Personal history of urinary calculi
CPT/HCPCS: 50081; 86900; 86901; 80048; 85025; 86850; 82365; 83036; 50432; 74018; C2628; C1769 ×3; C1894; J2250; J0330; J1100; J2405 ×2; J3010; J1170 ×4; J2704; C9113; Q9967; J2001